=== PATIENT | female | born 1960 | race Two or more races ===

== ENCOUNTER → 2024-01-16 | Outpatient (CLI) | payer MEDICARE, MEDICAID, SELFPAY ==
--- NOTE | 2024-01-16 10:30 | XR_ITS ---
Examination: CT chest, without intravenous contrast. Sagittal and coronal 2-D reconstructions. Exam date and time: January 16, 2024 1034 hours INDICATIONS: Nicotine dependence smoking history 50 years CTDI:vol (mGy) 11.5 DLP: (mGycm) 370 Technique: Multiple 3.0 mm axial sections of the chest to been obtained. Bone and lung density settings are obtained. Sagittal and coronal 2-D reconstructions have been obtained. Low dose protocols were performed. One or more of the following dose reduction techniques were used; automated exposure control, adjustment of the mA and/or KV according to patient size, use of iterative reconstruction technique. Findings: Thoracic aortic calcification no aneurysmal dilatation Pulmonary artery segments are not enlarged No paratracheal tracheobronchial or bronchopulmonary adenopathy 3 mm pulmonary nodule right upper lobe image 65 6 mm pleural-based pulmonary nodule right lower lobe image 197 No pneumonia or pulmonary edema Small retrocardiac gastric hernia No visualized liver lesion Contracted gallbladder Spleen not enlarged Kidneys partially visualized no hydronephrosis Mild to moderate thoracic spondylosis IMPRESSION: Subcentimeter pulmonary nodules as above, with this study as baseline recommend continued 6 month follow-up CT chest without contrast
--- NOTE | 2024-01-16 10:52 | XR_ITS ---
Examination: Ultrasound abdominal aorta Exam date and time: January 16, 2024 1114 hours INDICATIONS: Sharp epigastric pain beginning 5 minutes ago, smoking history 50 years TECHNIQUE AND FINDINGS: Multiple high resolution grayscale sonographic images of the abdominal aorta Transverse dimension proximal aorta 2.2 x 1.7 cm mid aorta 1.5 x 1.2 cm distal aorta 1.4 x 1.1 cm right iliac 0.7 x 0.5 cm left iliac 0.9 x 0.6 cm IMPRESSION: Negative for abdominal aortic aneurysm
== END | disposition home or self-care (01) ==
LOC: CCTX 10:09
PROVIDERS: Referring Provider Nurse Practitioner Family; Visit Provider Nurse Practitioner Family
DX: R10.13 Epigastric pain (principal); R91.8 Other nonspecific abnormal finding of lung field; F17.210 Nicotine dependence, cigarettes, uncomplicated
CPT/HCPCS: 71250; 76770

== ENCOUNTER → 2024-12-18 | Outpatient (CLI) | payer MEDICARE, MEDICAID, SELFPAY ==
--- NOTE | 2024-12-18 17:00 | XR_ITS ---
Examination: CT chest, without intravenous contrast. Sagittal and coronal 2-D reconstructions. Exam date and time: December 18, 2024, 1657 hours, comparison January 16, 2024 INDICATIONS: Chest pain 1 year, 3 mm nodule right upper lobe, 6 mm nodule right lower lobe on CT chest January 16, 2024 CTDI:vol (mGy) 10.6 DLP: (mGycm) 356 Technique: Multiple 3.0 mm axial sections of the chest to been obtained. Bone and lung density settings are obtained. Sagittal and coronal 2-D reconstructions have been obtained. Low dose protocols were performed. One or more of the following dose reduction techniques were used; automated exposure control, adjustment of the mA and/or KV according to patient size, use of iterative reconstruction technique. Findings: No thoracic aortic aneurysm dilatation Pulmonary artery segments are nonenlarged Mild calcification left anterior descending coronary artery No paratracheal tracheobronchial or bronchopulmonary adenopathy No pneumonia pulmonary edema or pleural disease Stable right lung pulmonary nodules, no new pulmonary nodules Liver spleen intact No gallstones No pancreatic or adrenal mass Osseous structures are intact IMPRESSION: Stable pulmonary nodules right lung, no new pulmonary nodules No pneumonia or pulmonary edema or pleural disease
== END | disposition home or self-care (01) ==
PROVIDERS: PCP Nurse Practitioner Family; Referring Provider Nurse Practitioner Family; Visit Provider Nurse Practitioner Family
DX: R91.8 Other nonspecific abnormal finding of lung field (principal)
CPT/HCPCS: 71250